=== PATIENT | female | born 1975 | race Caucasian/White ===

== ENCOUNTER → 2017-08-11 | Outpatient (CLI) | payer BC ==
[2017-08-11 08:51] LABS: Basophils % (A) 1 %; Eosinophils # (A) 0.2 k/uL (0-0.7); Eosinophils % (A) 4 %; HCT 38.6 % (34.0-46.0); HGB 12.9 gm/dL (11.4-16.0); Lymphocytes # (A) 1.1 k/uL (1.0-4.8); Lymphocytes % (A) 18 %; MCH 30.7 pg (25.0-35.0); MCHC 33.4 g/dL (31.0-37.0); MCV 92.1 fL (80.0-100.0); Mean Platelet Volume 6.9; Monocytes # (A) 0.4 k/uL (0-1.0); Monocytes % (A) 7 %; Neutrophils # (A) 4.1 k/uL (1.3-7.7); Neutrophils % (A) 69 %; Platelet Count 264 k/uL (150-450); RBC 4.19 m/uL (3.80-5.40); RDW 12.5 % (11.5-15.5)
[2017-08-11 09:06] LABS: ALT 34 U/L (9-52); AST 23 U/L (14-36); Albumin 4.6 g/dL (3.5-5.0); Alkaline Phosphatase 56 U/L (38-126); Anion Gap 10 mmol/L; Blood Urea Nitrogen 12 mg/dL (7-17); Calcium 9.8 mg/dL (8.4-10.2); Carbon Dioxide 26 mmol/L (22-30); Chloride 104 mmol/L (98-107); Glucose 91 mg/dL (74-99); Magnesium 1.9 mg/dL (1.6-2.3); Potassium 4.6 mmol/L (3.5-5.1); Sodium 140 mmol/L (137-145); Total Bilirubin 1.4 mg/dL (0.2-1.3); Total Protein 6.9 g/dL (6.3-8.2)
[2017-08-11 09:22] LABS: T4, Free (Free Thyroxine) 1.17 ng/dL (0.78-2.19)
== END | disposition home or self-care (01) ==
LOC: LABWHC1 08:34
PROVIDERS: ATTEND Family Medicine
DX: Z00.00 Encounter for general adult medical examination without abnormal findings (principal)
CPT/HCPCS: 36415; 80053; 83735; 84439; 84443; 85025

== ENCOUNTER → 2017-09-15 | Outpatient (CLI) | payer BC ==
[2017-09-15 09:33] LABS: Amylase 39 U/L (30-110); Lipase 49 U/L (23-300)
--- NOTE | 2017-09-15 09:45 | US ---
EXAMINATION TYPE: US abdomen complete DATE OF EXAM: 09/15/2017 COMPARISON: NONE CLINICAL HISTORY: R10.13 Epigastric pain. EXAM MEASUREMENTS: Liver Length: 10.9 cm Gallbladder Wall: 0.2 cm CBD: 0.3 cm Spleen: 9.1 cm Right Kidney: 10.2 x 4.2 x 5.3 cm Left Kidney: 11.3 x 6.4 x 5.7 cm Pancreas: visualized portions wnl Liver: wnl Gallbladder: No stones seen Evidence for sonographic Rivera's sign: No CBD: wnl Spleen: wnl Right Kidney: No hydronephrosis or masses seen Left Kidney: No hydronephrosis or masses seen Upper IVC: wnl Abd Aorta: wnl The visualized liver is homogenous. The intrahepatic portion of the IVC and visualized abdominal aor ta through the bifurcation are within normal limits. There is no evidence of cholelithiasis. Common bile duct is unremarkable. The visualized portions of the pancreas are homogenous. The spleen is u nremarkable. Kidneys are symmetric and free of hydronephrosis. No renal lesions are seen. IMPRESSION: No significant finding seen to account for patient's symptoms of epigastric pain.
== END | disposition home or self-care (01) ==
LOC: RADUSWWP 08:01
PROVIDERS: ATTEND Family Medicine
DX: R10.13 Epigastric pain (principal)
CPT/HCPCS: 36415; 76700; 82150; 83690

== ENCOUNTER → 2017-09-16 | Outpatient (CLI) | payer BC ==
--- NOTE | 2017-09-20 08:21 | MM ---
Reason for exam: screening (asymptomatic). Last mammogram was performed 2 years and 9 months ago. History: Family history of breast cancer in paternal grandmother at age 83, breast cancer in paternal aunt at age 50, and breast cancer in paternal aunt at age 40. Took hormonal contraceptives for 15 years. Physical Findings: A clinical breast exam by your physician is recommended on an annual basis and results should be correlated with mammographic findings. MG Screening Mammo w CAD Bilateral CC and MLO view(s) were taken. Prior study comparison: December 12, 2014, bilateral MG screening mammo w CAD. December 25, 2008, bilateral digital screening mammogram. The breast tissue is heterogeneously dense. This may lower the sensitivity of mammography. Left sided pacemaker generator. No significant changes when compared with prior studies. ASSESSMENT: Negative, BI-RAD 1 RECOMMENDATION: Routine screening mammogram of both breasts in 1 year.
== END | disposition home or self-care (01) ==
LOC: RADMAMWWP 10:04
PROVIDERS: ATTEND Obstetrics & Gynecology
DX: Z12.31 Encounter for screening mammogram for malignant neoplasm of breast (principal)
CPT/HCPCS: 77067

== ENCOUNTER 2017-11-16 08:31 | Day surgery (SDC) | payer BC ==
[2017-11-15 08:42] VITALS: BMI 25.4
[~2017-11-16 08:31] MED LIST: LACTATED RINGERS 1,000 ML IV SCH
[2017-11-16 09:02] VITALS: RESP 16; TEMP 98.2
[2017-11-16] MEDS ORDERED: LIDOCAINE 1% 20 ML VIAL (10MG/ML) FOR IV START INTRADERMA ONE (09:18)
[2017-11-16] MEDS ORDERED: fentaNYL (PF) 50 MCG/ML 2 ML AMP ONE (09:42)
[2017-11-16] MEDS ORDERED: PROPOFOL 10 MG/ML 20 ML VIAL IV ONE (09:42)
[2017-11-16] MEDS ORDERED: MIDAZOLAM 2 MG/2 ML VIAL ONE (09:42)
--- NOTE | 2017-11-16 09:51 | P.PCN ---
Date of Procedure: 11/16/17 Procedure(s) Performed: BRIEF HISTORY: Patient is a 42-year-old, pleasant, white female, scheduled for an upper endoscopy as a part of evaluation of epigastric pain and postprandial abdominal fullness for the last 4 months duration. She tried Prilosec for 1 month with no help. Recently she was started on Zantac 150 milligrams twice daily with no help. She since can for an upper endoscopy to evaluate further. PROCEDURE PERFORMED: Esophagogastroduodenoscopy with biopsy. PREOPERATIVE DIAGNOSIS: chronic epigastric pain and postprandial abdominal fullness. IV sedation per anesthesia. PROCEDURE: After informed consent was obtained, the patient was brought into the endoscopy unit. IV sedation was administered by Anesthesia under continuous monitoring. Initially the Olympus GIF-140 video endoscope was inserted into the mouth. Esophagus intubated without any difficulty. It was gradually advanced into the stomach and duodenum and carefully examined. The bulb and the second part of the duodenum appeared normal. The scope at this time was withdrawn to the stomach, adequately insufflated with air, and upon careful examination, mucosa of the antrum, body, cardia and the fundus appeared normal. The scope was then withdrawn into the esophagus. The GE junction was located at 39 cm from the incisors. The esophagus appeared normal. There were no erosions or ulcerations seen and the patient tolerated the procedure well. IMPRESSION: 1. Mild antral gastritis. 2. No evidence of esophagitis or peptic ulcer disease. RECOMMENDATIONS: The findings of this examination were discussed with the patient as well as a family. She was advised to follow with the biopsy results. She will continue with Zantac 150 milligrams twice daily and she'll be seen in office in 2-3 weeks.
[2017-11-16 10:31] VITALS: BP 115/73; PULSE 59
== END 2017-11-16 10:42 | disposition home or self-care (01) ==
LOC: ORWHC2ENDO 08:31
PROVIDERS: ATTEND Internal Medicine Gastroenterology
DX: K29.50 Unspecified chronic gastritis without bleeding (principal); K31.9 Disease of stomach and duodenum, unspecified; Q24.6 Congenital heart block; Z79.899 Other long term (current) drug therapy; Z88.0 Allergy status to penicillin; Z88.2 Allergy status to sulfonamides; Z88.1 Allergy status to other antibiotic agents
CPT/HCPCS: 81025; 88305; 43239; J2250; J3010; J2704

== ENCOUNTER → 2020-05-30 | Outpatient (CLI) | payer BC ==
[2020-05-30 18:08] LABS: HCT 38.7 % (37.2-46.3); HGB 12.8 g/dL (12.0-15.0); MCH 30.8 pg (27.0-32.0); MCHC 33.1 g/dL (32.0-37.0); Mean Platelet Volume 9.7 fL (9.5-12.2); Platelet Count 321 X 10*3/uL (140-440); RBC 4.16 X 10*6/uL (4.10-5.20); RDW 12.9 % (11.5-14.5); WBC 8.98 X 10*3/uL (4.50-10.00)
[2020-05-30 19:12] LABS: African American GFR (CKD) 88.9 (60.0-200.0); Albumin 4.7 g/dL (3.80-4.90); Albumin/Globulin Ratio 2.04 (1.60-3.17); Anion Gap 10.3 mmol/L (4.00-12.00); BUN/Creat Ratio 24.44 Ratio (12.00-20.00); Calcium 9.9 mg/dL (8.7-10.3); Carbon Dioxide 25.7 mmol/L (21.6-31.8); Chol/HDL Ratio 1.91; Globulin 2.3 g/dL (1.6-3.3); LDL Cholesterol,Calculated 65.8 mg/dL (0.0-131.0); Magnesium 1.8 mg/dL (1.5-2.4); Non-African American GFR(CKD) 76.7 (60.0-200.0); Potassium 4.4 mmol/L (3.5-5.5); Total Bilirubin 1.7 mg/dL (0.2-1.2); VLDL Calculation 32.2 mg/dL (5.00-40.00)
== END | disposition home or self-care (01) ==
LOC: LABWHC1 09:00
PROVIDERS: ATTEND Nurse Practitioner Adult Health
DX: Z00.00 Encounter for general adult medical examination without abnormal findings (principal); R00.2 Palpitations; E78.5 Hyperlipidemia, unspecified
CPT/HCPCS: 36415; 80053; 80061; 83735; 84443; 84481; 85027

== ENCOUNTER → 2022-02-26 | Outpatient (CLI) | payer BC ==
[2022-02-26 13:16] LABS: Amorphous Sediment,Urine Many /hpf; Appearance,Urine Turbid (Clear); Bilirubin,Urine Negative (Negative); Blood,Urine Negative (Negative); Color,Urine Yellow; Glucose,Urine (UA) Negative (Negative); Ketones,Urine Negative (Negative); Leukocyte Esterase,Urine Trace (Negative); Mucus,Urine Many /hpf; Nitrite,Urine Negative (Negative); Protein,Urine Negative (Negative); Specific Gravity,Urine 1.015 (1.001-1.035); Squamous Epithelial Cell,Urine 9 /hpf (0-4); Urobilinogen,Urine <2.0 mg/dL (<2.0); WBC,Urine 3 /hpf (0-5)
== END | disposition home or self-care (01) ==
LOC: LABWHC1 11:52
PROVIDERS: ATTEND Internal Medicine Clinical Cardiac Electrophysiology
DX: N39.0 Urinary tract infection, site not specified (principal)
CPT/HCPCS: 81001; 87086

== ENCOUNTER → 2022-07-27 | Outpatient (CLI) | payer BC ==
--- NOTE | 2022-07-28 08:42 | MM ---
Reason for Exam: Screening (asymptomatic). Last mammogram was performed 4 year(s) and 10 month(s) ago. Patient History: Menarche at age 11. First Full-Term at age 26. Patient used Hormonal Contraceptives for 15 years. Paternal grandmother had breast cancer, age 83. Paternal aunt had breast cancer, age 50. Paternal aunt had breast cancer, age 40. Last menstrual period: 06/19/2022 Risk Values: Cindy 5 year model risk: 1.0%. NCI Lifetime model risk: 10.0%. Prior Study Comparison: 12/25/2008 Bilateral Screening Mammogram, [facility]. 12/12/2014 Bilateral Screening Mammogram, [facility]. 09/16/2017 Bilateral Screening Mammogram, [facility]. Tissue Density: The breast tissue is heterogeneously dense. This may lower the sensitivity of mammography. Findings: Analyzed By CAD. There is no suspicious group of microcalcifications or new suspicious mass in either breast. Overall Assessment: Negative, BI-RAD 1 Management: Screening Mammogram of both breasts in [address] [facility] will attempt to contact patient to return for supplemental views and ultrasound if indicated. Patient should continue monthly self-breast exams. A clinical breast exam by your physician is recommended on an annual basis. This exam should not preclude additional follow-up of suspicious palpable abnormalities. Note on Cindy scores and lifetime risk: 1. A Cindy score greater than 3% is considered moderate risk. If this is the case, consider specialist referral to assess eligibility for a risk reducing agent. 2. If overall lifetime risk for the development of breast cancer is 20% or higher, the patient may qualify for future screening with alternating mammogram and breast MRI. Electronically signed and approved by: Osmin Camilo DO
== END | disposition home or self-care (01) ==
LOC: RADMAMWWP 08:10
PROVIDERS: ATTEND Family Medicine
DX: Z12.31 Encounter for screening mammogram for malignant neoplasm of breast (principal); Z80.3 Family history of malignant neoplasm of breast
CPT/HCPCS: 77067

== ENCOUNTER → 2022-11-11 | Outpatient (CLI) | payer BC ==
--- NOTE | 2022-11-11 15:10 | XR ---
EXAMINATION TYPE: XR sacrum coccyx DATE OF EXAM: 11/11/2022 COMPARISON: None HISTORY: Fall, pain TECHNIQUE: 3 views sacrum and coccyx FINDINGS: Sacroiliac joints are patent. Sacrum appears intact. No acute fractures or dislocations vitor dent. IMPRESSION: 1. No acute osseous abnormalities sacrum and coccyx.
== END | disposition home or self-care (01) ==
LOC: RADXRMAIN 13:27
PROVIDERS: ATTEND Family Medicine
DX: M53.3 Sacrococcygeal disorders, not elsewhere classified (principal); W19.XXXA Unspecified fall, initial encounter
CPT/HCPCS: 72220

== ENCOUNTER → 2023-06-24 | Outpatient (CLI) | payer BC | END | disposition home or self-care (01) | LOC: LABWHC1 13:26 | PROVIDERS: ATTEND Internal Medicine Clinical Cardiac Electrophysiology | DX: I33.0 Acute and subacute infective endocarditis (principal) | CPT/HCPCS: 36415; 82308; 85652; 86141; 87040 ==

== ENCOUNTER 2024-06-19 12:40 | Day surgery (SDC) | payer BC ==
[2024-06-18 10:10] VITALS: BMI 25.2
[2024-06-19] MEDS: IV FLUID CONTINUATION 1,000 ML IV ONE (13:38)
[2024-06-19] MEDS: SODIUM CHLORIDE 0.9% 1,000 ML IV SCH (13:39)
[2024-06-19] MEDS: VANCOMYCIN 1,250 MG in SODIUM CHLORIDE 0.9% 250 ML IVPB ONE (13:42)
[2024-06-19 13:54] LABS: Basophils # (A) 0.08 10*3/uL (0.00-0.10); Basophils % (A) 1.1 %; Eosinophils # (A) 0.18 10*3/uL (0.04-0.35); Eosinophils % (A) 2.4 %; HGB 12.3 g/dL (12.0-15.0); Lymphocytes # (A) 1.84 10*3/uL (0.90-5.00); Lymphocytes % (A) 24.6 %; MCH 31.9 pg (27.0-32.0); MCHC 35.1 g/dL (32.0-37.0); MCV 90.7 fL (80.0-97.0); Mean Platelet Volume 9.5 fL (9.5-12.2); Monocytes # (A) 0.58 10*3/uL (0.20-1.00); Monocytes % (A) 7.8 %; Neutrophils # (A) 4.77 10*3/uL (1.80-7.70); Neutrophils % (A) 63.8 %; Platelet Count 302 10*3/uL (140-440); RBC 3.86 10*6/uL (4.10-5.20); RDW 12.8 % (11.5-14.5); WBC 7.47 10*3/uL (4.50-10.00)
[2024-06-19 14:07] LABS: ALT 21 U/L (4-34); AST 24 U/L (14-36); African American GFR (CKD) >90 (>60 ml/min/1.73 sqM); Alkaline Phosphatase 59 U/L (38-126); Anion Gap 6 mmol/L; Blood Urea Nitrogen 18 mg/dL (7-17); Calcium 9.7 mg/dL (8.4-10.2); Carbon Dioxide 22 mmol/L (22-30); Chloride 107 mmol/L (98-107); Glucose 93 mg/dL (74-99); Non-African American GFR(CKD) >90 (>60 ml/min/1.73 sqM); Potassium 4.2 mmol/L (3.5-5.1); Sodium 135 mmol/L (137-145); Total Protein 6.4 g/dL (6.3-8.2)
[2024-06-19] MEDS: MIDAZOLAM 2 MG/2 ML VIAL IV ONE (15:22)
[2024-06-19] MEDS: VANCOMYCIN IV PER PHARMACY 1 EACH MISC MISCELLANE SCH (15:33)
[2024-06-19] MEDS ORDERED: MIDAZOLAM 2 MG/2 ML VIAL ONE (18:07)
[2024-06-19] MEDS ORDERED: PROPOFOL 10 MG/ML 20 ML VIAL IV ONE (18:07)
[2024-06-19] MEDS ORDERED: fentaNYL (PF) 50 MCG/ML 2 ML AMP ONE (18:07)
[2024-06-19] MEDS: CLINDAMYCIN 900 MG in DEXTROSE 5% IN WATER 50 ML IVPB PRN (18:25)
[2024-06-19] MEDS: IOPAMIDOL-370 100ML BTL INJ ONE (18:34)
[2024-06-19] MEDS: LIDOCAINE 1% INJ 10MG/ML (20 ML MDV) SQ ONE ×2 (18:37→19:04)
[2024-06-19] MEDS: CLINDAMYCIN 600 MG in SODIUM CHLORIDE 0.9% 250 ML IRRIGATION PRN (18:56)
[2024-06-19] MEDS: HEPARIN SODIUM,PORCINE (1 ML) 2,500 UNIT in SODIUM CHLORIDE 0.9% 250 ML IRRIGATION ONE (18:57)
[2024-06-19] MEDS: ROPIVACAINE 5 MG/ML 30 ML VIAL MISCELLANE ONE (19:04)
--- NOTE | 2024-06-19 20:39 | P.EPPROC ---
- EP Procedure Note Electrophysiology Procedure Note: Diagnosis Symptomatic bradycardia/complete heart block Dual-chamber pacemaker in situ, device at [facility] Procedure Dual-chamber pacemaker generator change Cinefluoroscopy the leads Left upper extremity venogram Details Patient was brought to the EP lab in a fasting state. Written informed consent was obtained prior to the procedure. Conscious sedation provided by anesthesia Cinefluoroscopy of the leads revealed an old RV lead in the RV apex that was abandoned. Atrial lead and right atrial appendage no fractures or breaks An RV lead screwed in the RV septum, no fractures or breaks Left upper extremity venogram performed. 10 cc of IV dye injected. Patent axillary vein but occluded at the axillary subclavian junction. The the subclavian vein along with the initial portion of the innominate vein is completely occluded. Therefore a decision was made to proceed with a dual- chamber pacemaker generator only IV antibiotics administered. Local anesthesia administered. A 4 cm incision made in the pectoral area. Subfascial pocket accessed. Partial capsulectomy performed Pocket irrigated. Antibiotic pouch placed Old generator explanted. New generator implanted Chronic atrial lead position the right atrial appendage. P waves 3.5 mV, pacing impedance 342 ohms and pacing threshold 0.5 V at 0.4 ms Chronic RV lead position in the RV septum. Pacing pins 513 ohms and pacing threshold 0.75 V at 0.4 ms New Medtronic dual-chamber pacemaker generator implanted, Medtronic, AGUSTIN XT DR Dual-chamber pacemaker device connected to the leads and placed in the subfascial pocket Patient tolerated the procedure well without acute complications Pacemaker programming DDDR 60-130 bpm
[2024-06-19] MEDS: ACETAMINOPHEN IV (For NPO) 1,000 MG in EMPTY BAG 1 BAG IVPB ONE (20:50)
[2024-06-20] MEDS: CLINDAMYCIN 900 MG in DEXTROSE 5% IN WATER 50 ML IVPB SCH (00:01)
[2024-06-20] MEDS: ACETAMINOPHEN TAB 325 MG TAB PO PRN (05:35)
[2024-06-20 07:38] VITALS: BP 114/68; PULSE 56; RESP 14; TEMP 97.9
[2024-06-20] MEDS: CLINDAMYCIN 900 MG in DEXTROSE 5% IN WATER 50 ML IVPB STA (08:29)
[2024-06-20] MEDS: SPIRONOLACTONE 25 MG TAB PO SCH (08:29)
[2024-06-20] MEDS: METOPROLOL SUCCINATE (ER) 50 MG TAB.ER.24H PO SCH (08:29)
--- NOTE | 2024-06-20 09:42 | DS ---
DISCHARGE SUMMARY HOSPITAL COURSE: Kymberly Sorensen is a 48-year-old female who has congenital complete heart block status post initial pacemaker when she was very young. Following that, she had lead extraction and implantation of 2 new leads about 14 to 15 years back. The atrial lead was extracted successfully. However, on account of a very degraded old RV lead, that old RV lead could not be extracted since the coil was quickly unraveling during laser extraction. The lead in its entirety is still in the RV apex. Yesterday, she underwent dual chamber pacemaker generator change for device at [facility]. Both the atrial and ventricular leads that I had implanted about 14 years back are functioning normally, have normal fluoroscopic appearance. TVP was placed through the right groin, but ultimately we did realize that she does have an underlying rhythm at about 50 beats per minute, but it takes a while for underlying rhythm to recover from pacing. During the procedure, it was noted that the old generator pacemaker generator had slid and migrated laterally towards the axilla. The new generator has been placed more medially and secured to the underlying pectoralis muscle. The leads are functioning normally. Thresholds are normal. BP is stable today. The groin site has healed well. IMPRESSION: Congenital complete heart block with an underlying rhythm at about 40 to 50 beats per minute, escape rhythm that recovers slowly from ventricular pacing. Status post dual-chamber pacemaker generator change. TVP placement temporarily. She will be discharged home today after completion of antibiotic dose and follow up in the office in a week's time. She was encouraged to use the wireless interrogation. MMBILLY / ASAN: [id number] /
== END 2024-06-20 10:30 | disposition home or self-care (01) ==
LOC: CATHEP 12:40 → 6NMEDSUR 20:02 → CATHEP 06-20 10:30
PROVIDERS: ATTEND Internal Medicine Clinical Cardiac Electrophysiology
DX: Q24.6 Congenital heart block (principal); Z45.010 Encounter for checking and testing of cardiac pacemaker pulse generator [battery]; I47.10 Supraventricular tachycardia, unspecified
CPT/HCPCS: 33228; 80053; 84443; 85025; 81025; C1894; C1769 ×2; C1760; C1730; C1785; J2250; J3370; J1644; J2003; J2795; J0131; Q9967; J0736 ×3